=== PATIENT | male | born 1975 | race Caucasian/White ===

== ENCOUNTER → 2023-09-29 09:42 | Outpatient (CLI) | payer OTHER, SELFPAY ==
--- NOTE | 2023-09-29 09:43 | DI.US.S_ITS ---
PROCEDURE: US SOFT TISSUE HEAD AND NECK INDICATIONS: Localized swelling, mass and lump,submandibular TECHNIQUE: Real-time scanning was performed of the neck region of interest, with image documentation. COMPARISON: None. FINDINGS: Normal appearing lymph nodes are seen throughout the neck. Within the right parotid gland, there is a possible lymph node measuring 8 millimeters in short axis. The parotid and submandibular glands are otherwise within normal limits. IMPRESSION: Possible lymph node within the right parotid gland measuring 8 millimeters, normal is less than 6 millimeters. Recommend follow-up ultrasound in 6-12 weeks to assess stability or resolution. Otherwise, normal appearing lymph nodes are seen throughout the neck. Dictated by: Delano Murdock M.D. on 09/29/2023 at 11:46 Approved by: Delano Murdock M.D. on 09/29/2023 at 11:49
== END ==
PROVIDERS: Referring Provider Internal Medicine; Visit Provider Internal Medicine
DX: R22.1 Localized swelling, mass and lump, neck (principal)
CPT/HCPCS: 76536

== ENCOUNTER → 2023-11-16 10:49 | Outpatient (CLI) | payer OTHER, SELFPAY ==
--- NOTE | 2023-11-16 10:54 | DI.RAD.S_ITS ---
PROCEDURE: XR CERVICAL SPINE 2V OR 3V INDICATIONS: BACK PAIN TECHNIQUE: 4 view(s) of the cervical spine were acquired. COMPARISON: None. FINDINGS: Bones: No fractures or dislocations to the C6 level. There are multilevel degenerative changes of the cervical spine with facet and uncovertebral arthropathy, disc height loss with degenerative endplate changes and spurring. The lateral masses of C1 appear intact on the odontoid view. No suspicious bony lesions. Soft tissues: No prevertebral soft tissue swelling. IMPRESSION: Multilevel degenerative changes of the cervical spine with mild reversal the normal cervical lordosis. Dictated by: Delano Murdock M.D. on 11/16/2023 at 14:11 Approved by: Delano Murdock M.D. on 11/16/2023 at 14:12
--- NOTE | 2023-11-16 10:54 | DI.RAD.S_ITS ---
PROCEDURE: XR LUMBAR SPINE 2-3V INDICATIONS: BACK PAIN TECHNIQUE: 3 views of the lumbar spine were acquired. COMPARISON: None. FINDINGS: Bones: 5 [id number] vertebrae are present. Mild levocurvature of the lumbar spine. Straightening of the normal lumbar lordosis. There is multilevel facet arthropathy, worse at L4-5 and L5-S1. Mild multilevel disc height loss with degenerative endplate changes and spurring is present. This is most pronounced at L5-S1. No vertebral body compression fractures. No suspicious bony lesions. Soft tissues: Overlying bowel gas pattern is normal. No suspicious soft tissue calcifications. IMPRESSION: Mild degenerative changes of the lumbar spine, most pronounced at L5-S1 with at least moderate disc height loss. Dictated by: Delano Murdock M.D. on 11/16/2023 at 14:09 Approved by: Delano Murdock M.D. on 11/16/2023 at 14:11
== END ==
PROVIDERS: Referring Provider Internal Medicine Cardiovascular Disease; Visit Provider Internal Medicine Cardiovascular Disease
DX: M47.812 Spondylosis without myelopathy or radiculopathy, cervical region (principal); M47.816 Spondylosis without myelopathy or radiculopathy, lumbar region; M47.817 Spondylosis without myelopathy or radiculopathy, lumbosacral region; M54.2 Cervicalgia; M54.50 Low back pain, unspecified
CPT/HCPCS: 72040; 72100

== ENCOUNTER → 2024-01-18 12:37 | Outpatient (CLI) | payer OTHER, SELFPAY ==
--- NOTE | 2024-01-18 12:40 | DI.US.S_ITS ---
PROCEDURE: US ABDOMEN LIMITED INDICATIONS: B/L LOWER LUMBAR SOFT TISSUE LUMPS TECHNIQUE: Real-time scanning was performed at the area of interest, with image documentation. COMPARISON: None. FINDINGS: Within the area of interest, there is ill-defined subcutaneous soft tissue that is similar in appearance to the contralateral side. IMPRESSION: Within the area of interest, there is ill-defined subcutaneous soft tissue that is similar in appearance to the contralateral side. Therefore, no pathology is suspected. Dictated by: Eber Vieyra M.D. on 01/19/2024 at 13:10 Approved by: Eber Vieyra M.D. on 01/19/2024 at 13:17
== END ==
LOC: US 12:39
PROVIDERS: Referring Provider Internal Medicine; Visit Provider Internal Medicine
DX: R23.9 Unspecified skin changes (principal)
CPT/HCPCS: 76705